=== PATIENT | female | born 1930 | race African-American/Black ===

== ENCOUNTER 2020-01-01 10:32 | Inpatient (IN) ==
[2020-01-01] MEDS ORDERED: ACETAMINOPHEN 500 MG TABLET PO PRN (13:45)
[2020-01-01 13:54] LABS: Basophils % 0.2 % (0.0-0.8); Hematocrit 32.5 VOL% (35.7-47.0); Hemoglobin 9.8 GM/DL (12.0-16.0); Immature Granulocytes % 0.7 %; Immature Granulocytes Absolute 0.13 #; Lymphocytes # 0.6 10*3/uL (1.4-4.0); Lymphocytes % 3.3 % (21.3-54.2); Mean Corpuscular HGB Conc 30.2 GM/DL (32-36); Mean Corpuscular Volume 92.6 FL (87-102); Mean Platelet Volume 9.5 FL (9.6-12.0); Monocytes % 3.3 % (1.7-12.7); Neutrophils % 92.5 % (38.7-73.9); Platelet Count 311 T/CUMM (130-400); Red Blood Count 3.51 MC/CUMM (3.8-5.5); Red Cell Distribution Width 15.9 % (9.3-17.3); White Blood Count 17.6 T/CUMM (4-12)
[2020-01-01 14:13] LABS: Anisocytosis Slight; Band Neutrophils 5 % (0-10); Hypochromasia 1+; Lymphocytes 2 % (20-55); Segmented Neutrophils 91 % (50-85); Total Cells Counted 100
[2020-01-01 14:14] LABS: Platelet Estimate Adequate; Polychromasia Few; Schistocytes Few
[2020-01-01 14:21] LABS: Albumin 2.2 G/DL (3.4-5.0); Bilirubin,Total 0.5 MG/DL (0.2-1.0); Calcium 8.3 MG/DL (8.5-10.1); Osmolality,Calculated 276.7 MOS/KG (273-304); Total Protein 6.5 G/DL (6.4-8.3)
[2020-01-01] MEDS ORDERED: CALCIUM CARBONATE CHEW 500 MG TABLET PO PRN (14:45)
[2020-01-01] MEDS ORDERED: guaiFENesin/DM ER 600-30 MG TABLET PO PRN (14:45)
[2020-01-01] MEDS ORDERED: ACETAMINOPHEN 325 MG TABLET PO PRN (14:45)
[2020-01-01] MEDS ORDERED: DOCUSATE SODIUM 100 MG CAPSULE PO PRN (14:45)
[2020-01-01] MEDS ORDERED: ONDANSETRON 4 MG/2 ML VIAL IV PRN (14:45)
[2020-01-01] MEDS ORDERED: MORPHINE 4 MG/1 ML VIAL IV PRN (14:45)
[2020-01-01] MEDS ORDERED: ZALEPLON 5 MG CAPSULE PO PRN (14:45)
[2020-01-01] MEDS ORDERED: hydrALAZINE 20 MG/1 ML VIAL IV PRN (14:45)
[2020-01-01] MEDS ORDERED: GLUCAGON 1 MG VIAL IM PRN (14:45)
[2020-01-01] MEDS ORDERED: ALUMINUM/MAGNES/SIMETH MAX STR 30 ML UDCUP PO PRN (14:45)
[2020-01-01] MEDS ORDERED: DEXTROSE 50% 25 GM/50 ML VIAL IV PRN (14:45)
[2020-01-01] MEDS ORDERED: LACTULOSE 20 GM/30 ML UDCUP PO PRN (14:45)
[2020-01-01] MEDS ORDERED: diphenhydrAMINE CAP 25 MG CAPSULE PO PRN (14:45)
[2020-01-01] MEDS ORDERED: SIMETHICONE CHEW 125 MG TABLET PO PRN (14:45)
[2020-01-01] MEDS ORDERED: traZODone 50 MG TABLET PO PRN (14:45)
[2020-01-01] MEDS ORDERED: BISACODYL 5 MG TABLET PO PRN (14:45)
[2020-01-01] MEDS: PIPERACILLIN/TAZOBACTAM 3,375 MG in SODIUM CHLORIDE 0.9% 100 ML IV SCH ×2 (16:23→21:01)
[2020-01-01] MEDS: SODIUM CHLORIDE 0.9% 1,000 ML IV SCH (16:23)
[2020-01-01] MEDS: CYPROHEPTADINE 4 MG TABLET PO SCH (20:55)
[2020-01-02 05:24] LABS: Basophils % 0.2 % (0.0-0.8); Eosinophils # 0.2 10*3/uL (0.0-0.87); Eosinophils % 1.4 % (0.00-10.9); Hematocrit 28.8 VOL% (35.7-47.0); Hemoglobin 8.8 GM/DL (12.0-16.0); Immature Granulocytes % 0.4 %; Immature Granulocytes Absolute 0.05 #; Lymphocytes # 1.3 10*3/uL (1.4-4.0); Lymphocytes % 10.9 % (21.3-54.2); Mean Corpuscular HGB Conc 30.6 GM/DL (32-36); Mean Corpuscular Volume 91.4 FL (87-102); Mean Platelet Volume 9.4 FL (9.6-12.0); Monocytes % 8.5 % (1.7-12.7); Neutrophils % 78.6 % (38.7-73.9); Platelet Count 274 T/CUMM (130-400); Red Blood Count 3.15 MC/CUMM (3.8-5.5); Red Cell Distribution Width 15.9 % (9.3-17.3); White Blood Count 11.5 T/CUMM (4-12)
[2020-01-02 05:41] LABS: Albumin 1.8 G/DL (3.4-5.0); Bilirubin,Total 0.4 MG/DL (0.2-1.0); Osmolality,Calculated 277.5 MOS/KG (273-304); Risk Ratio 2.18; Thyroid Stimulating Hormone 0.386 uIU/ml (0.358-3.74); Total Protein 5.7 G/DL (6.4-8.3); VLDL CHOLESTEROL 11.6 MG/DL
[2020-01-02] MEDS: PIPERACILLIN/TAZOBACTAM 3,375 MG in SODIUM CHLORIDE 0.9% 100 ML IV SCH ×3 (05:51→21:16)
[2020-01-02] MEDS ORDERED: POTASSIUM CHLORIDE RIDER 10 MEQ in PREMIX 1 EACH IV PRN (07:59)
[2020-01-02] MEDS ORDERED: POTASSIUM CHLORIDE 20 MEQ TABLET PO ONE (08:18)
[2020-01-02] MEDS: POTASSIUM CHLORIDE 20 MEQ TABLET PO SCH (08:30)
[2020-01-02 08:58] LABS: INR 1.1; PT Patient Result 11.4 SECS (9.8-11.9)
[2020-01-02] MEDS ORDERED: APIXABAN 5 MG TABLET PO SCH (09:00)
[2020-01-02] MEDS: ANASTROZOLE 1 MG TABLET PO SCH (10:01)
[2020-01-02] MEDS: APIXABAN 2.5 MG TABLET PO SCH ×2 (10:02→20:23)
[2020-01-02] MEDS: FUROSEMIDE 40 MG TABLET PO SCH (10:02)
[2020-01-02] MEDS: CYPROHEPTADINE 4 MG TABLET PO SCH ×2 (10:02→20:23)
[2020-01-02] MEDS: PANTOPRAZOLE 40 MG TABLET PO SCH (10:02)
[2020-01-02] MEDS: lisinopriL 20 MG TABLET PO SCH (10:02)
[2020-01-02] MEDS: SODIUM CHLORIDE 0.9% 1,000 ML IV SCH ×2 (10:57→20:34)
[2020-01-02 14:22] LABS: Apearance,Urine CLOUDY (Clear); Bilirubin,Urine Negative (Negative); Blood, Urine Negative (Negative); Glucose,Urine (UA) Negative (Negative); Ketones,Urine Negative (Negative); Nitrite,Urine Negative (Negative); Protein,Urine Negative; Squamous Epithelial Cell,Urine Occasional /HPF (0-10); Uric Acid Crystals,Urine Many /HPF (<1); Urine Color Yellow (Yellow); Urine Specific Gravity 1.025 (1.001-1.035); Urine Urobilinogen < 2.0 EU/DL (0.2-1.0)
[2020-01-03] MEDS: PIPERACILLIN/TAZOBACTAM 3,375 MG in SODIUM CHLORIDE 0.9% 100 ML IV SCH ×2 (05:01→14:18)
[2020-01-03 07:29] LABS: Basophils % 0.2 % (0.0-0.8); Eosinophils # 0.2 10*3/uL (0.0-0.87); Eosinophils % 1.9 % (0.00-10.9); Hematocrit 29.7 VOL% (35.7-47.0); Hemoglobin 9.1 GM/DL (12.0-16.0); Immature Granulocytes % 0.3 %; Immature Granulocytes Absolute 0.03 #; Lymphocytes # 1.7 10*3/uL (1.4-4.0); Lymphocytes % 19.4 % (21.3-54.2); Mean Corpuscular HGB Conc 30.6 GM/DL (32-36); Mean Corpuscular Volume 90.3 FL (87-102); Mean Platelet Volume 9.3 FL (9.6-12.0); Monocytes % 12.4 % (1.7-12.7); Neutrophils % 65.8 % (38.7-73.9); Platelet Count 285 T/CUMM (130-400); Red Blood Count 3.29 MC/CUMM (3.8-5.5); Red Cell Distribution Width 15.9 % (9.3-17.3); White Blood Count 8.9 T/CUMM (4-12)
[2020-01-03 07:50] LABS: Albumin 1.8 G/DL (3.4-5.0); Bilirubin,Total 0.4 MG/DL (0.2-1.0); Calcium 8.1 MG/DL (8.5-10.1); Osmolality,Calculated 271.8 MOS/KG (273-304); Total Protein 5.7 G/DL (6.4-8.3)
[2020-01-03] MEDS: CYPROHEPTADINE 4 MG TABLET PO SCH (09:23)
[2020-01-03] MEDS: ANASTROZOLE 1 MG TABLET PO SCH (09:23)
[2020-01-03] MEDS: APIXABAN 2.5 MG TABLET PO SCH (09:23)
[2020-01-03] MEDS: POTASSIUM CHLORIDE 20 MEQ TABLET PO SCH (09:23)
[2020-01-03] MEDS: lisinopriL 20 MG TABLET PO SCH (09:23)
[2020-01-03] MEDS: FUROSEMIDE 40 MG TABLET PO SCH (09:23)
[2020-01-03] MEDS: PANTOPRAZOLE 40 MG TABLET PO SCH (09:23)
[2020-01-03 11:41] VITALS: BP 111/68
[2020-01-08] MEDS ORDERED: ERGOCALCIFEROL 50,000 UNIT CAPSULE PO SCH (09:00)
== END 2020-01-03 14:46 | disposition home or self-care (01) | DRG 690 ==
LOC: SUATTDRO 11:57 → N.TELES 11:57
PROVIDERS: ADMIT Internal Medicine; ATTEND Family Medicine